=== PATIENT | male | born 1980 | race Caucasian/White ===

== ENCOUNTER 2017-07-19 17:29 | Emergency (ER) | payer OTHER ==
[2017-07-19 17:39] VITALS: BP 148/113; PULSE 95; RESP 22; TEMP 97.8; O2SAT 100
[2017-07-19] MEDS ORDERED: Oxycodone/Acetaminophen 5/325 mg Tab PO STA (17:49)
[2017-07-19] MEDS ORDERED: Oxycodone/Acetaminophen 5/325 mg Tab ONE (17:50)
[2017-07-19] MEDS ORDERED: Silver Sulfadiazine 1% Cream (20 gm) TOP STA (17:50)
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
[2017-07-19] MEDS ORDERED: Silver Sulfadiazine 1% Cream (20 gm) ONE (18:01)
== END 2017-07-19 18:54 | disposition home or self-care (01) ==
LOC: C.ER 17:29
DX: T22.212A Burn of second degree of left forearm, initial encounter (principal); T22.211A Burn of second degree of right forearm, initial encounter; T23.202A Burn of second degree of left hand, unspecified site, initial encounter; T23.201A Burn of second degree of right hand, unspecified site, initial encounter; T79.9XXA Unspecified early complication of trauma, initial encounter; X08.8XXA Exposure to other specified smoke, fire and flames, initial encounter

== ENCOUNTER 2017-07-21 08:50 | Emergency (ER) | payer OTHER ==
[2017-07-21 09:00] VITALS: BP 126/88; PULSE 73; RESP 18; TEMP 97.9; O2SAT 99; BMI 24.3
[2017-07-21] MEDS ORDERED: Silver Sulfadiazine 1% Cream (20 gm) TOP STA (09:20)
[2017-07-21] MEDS ORDERED: Silver Sulfadiazine 1% Cream (20 gm) ONE (09:27)
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
== END 2017-07-21 09:45 | disposition home or self-care (01) ==
LOC: C.ER 08:50
DX: Z48.00 Encounter for change or removal of nonsurgical wound dressing (principal); T22.212D Burn of second degree of left forearm, subsequent encounter; T22.211D Burn of second degree of right forearm, subsequent encounter; X08.8XXD Exposure to other specified smoke, fire and flames, subsequent encounter

== ENCOUNTER 2017-07-23 11:25 | Emergency (ER) | payer OTHER ==
[2017-07-23 11:25] VITALS: BMI 24.3
[2017-07-23 11:35] VITALS: BP 133/85; PULSE 77; RESP 17; TEMP 97.4; O2SAT 98
[2017-07-23] MEDS ORDERED: Silver Sulfadiazine 1% Cream (20 gm) TOP STA (12:06)
[2017-07-23] MEDS ORDERED: Silver Sulfadiazine 1% Cream (20 gm) ONE (12:10)
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
== END 2017-07-23 12:35 | disposition home or self-care (01) ==
LOC: C.ER 11:25
DX: R11.10 Vomiting, unspecified (principal); T22.212D Burn of second degree of left forearm, subsequent encounter; T22.211D Burn of second degree of right forearm, subsequent encounter; V00-Y99 External causes of morbidity